=== PATIENT | female | born 1995 | race Hispanic/Latino ===

== ENCOUNTER → 2018-12-10 | Day surgery (SDC) | payer BC ==
[~2018-12-10] MED LIST: FENTANYL CITRATE/PF 100MCG/2 ML INJ ONE; LIDOCAINE HCL 2% LOCAL INJ 5 ML SDV VIAL INJ ONE; MIDAZOLAM HCL 2 MG/2 ML VIAL ONE; PROPOFOL IV EMULSION 10 MG/ML 50 ML VIAL ONE
[2018-12-10 11:50] VITALS: BP 119/72
== END | disposition home or self-care (01) ==
LOC: OR 09:16
PROVIDERS: ATTEND Internal Medicine
DX: D64.9 Anemia, unspecified (principal); K62.1 Rectal polyp; K29.70 Gastritis, unspecified, without bleeding; K25.9 Gastric ulcer, unspecified as acute or chronic, without hemorrhage or perforation; K64.0 First degree hemorrhoids
CPT/HCPCS: 43239; 45380; 81025; J2001; J2250; J2704; 45378

== ENCOUNTER → 2019-01-20 | Outpatient (CLI) | payer BC ==
--- NOTE | 2019-01-20 11:55 | Diagnostic Imaging Report ---
EXAMINATION: PA and lateral views of the chest. COMPARISON: None CLINICAL HISTORY: Mixed connective tissue disease DISCUSSION: Lines/tubes: None. Lungs: The lungs are well inflated and clear. There is no evidence of pneumonia or pulmonary edema. Pleura: There is no pleural effusion or pneumothorax. Heart and mediastinum: The cardiomediastinal silhouette is normal. Bones and soft tissues: No acute bony abnormalities. IMPRESSION: No acute cardiopulmonary abnormalities. Signed by: Dr. Jordy Ellis M.D. on 01/20/2019 11:52 AM
--- NOTE | 2019-01-20 11:57 | Diagnostic Imaging Report ---
Exam: Bilateral feet 3 views History: Mixed connective tissue disease Comparison: None. Findings: No acute, displaced fracture or dislocation. Joint spaces are well-maintained. Soft tissues are unremarkable. Impression: No acute osseous abnormalities. Signed by: Dr. Jordy Ellis M.D. on 01/20/2019 11:54 AM
== END ==
LOC: RAD 10:48
PROVIDERS: ATTEND Internal Medicine Rheumatology
DX: M35.1 Other overlap syndromes (principal)
CPT/HCPCS: 71046